=== PATIENT | male | born 2000 | race Caucasian/White ===

== ENCOUNTER 2023-04-07 16:34 | Emergency (ER) | payer OTHER, SELFPAY ==
[2023-04-07 16:34] VITALS: BP 136/90; PULSE 100; RESP 16; TEMP 36.1; O2SAT 95
--- NOTE | 2023-04-07 16:57 | ED.ANIMALBIT ---
HPI - Animal Bite General Chief Complaint: Animal Bite Stated Complaint: dog bite Time Seen by Provider: 04/07/23 16:52 Source: patient and family Mode of arrival: ambulatory Limitations: no limitations History of Present Illness HPI narrative: Pt presents to ER with dad due to dog bite in the left hand yesterday. It was a family dog. They went to [facility] yesterday and was discharged with antibiotics. Unclear if rabies treatment as initiated. As part of the history, MD attempted to elicit history regarding the dog's whereabouts. Patient immediately responded It's , gone, . MD attempted to confirm this information with dad at bedside but patient immediately started to become agitated, belligerent, and cursing at MD. I explained that the whereabouts of the dog is one of the most important pieces of information that I need that will guide treatment and I need accurate information. Also, I explained that I can not guarantee it is not rabies without knowing where the dog's exact where about is. Patient again became agitated, cursing with inappropriate language, repeatedly saying The dog is , it's and it's not rabies . MD attempted to call security to ensure patient's safety and he left AMA before treatment is complete. MD complaint: animal bite Onset (ago): day(s) Animal: dog Description of animal: household pet Mechanism: bite Location - Extremities: Left: hand Related Data Home Medications Medication Instructions Recorded Confirmed albuterol 90 mcg/actuation aerosol 90 mcg inhalation BID 04/07/23 04/07/23 inhaler Allergies Allergy/AdvReac Type Severity Reaction Status Date / Time No Known Allergies Allergy Verified 04/07/23 16:45 Review of Systems Constitutional: Constitutional: Reports as per HPI and Reports no additional constitutional complaints Eyes: Eyes: Reports as per HPI and Reports no additional eye complaints ENT: Reports system reviewed and no additional complaints, except as documented and Reports as per HPI Cardiovascular: Cardiovascular: Reports as per HPI and Reports no additional cardiovascular complaints Respiratory: Respiratory: Reports as per HPI and Reports no additional respiratory complaints Gastrointestinal: Gastrointestinal: Reports as per HPI and Reports no additional gastrointestinal complaints Genitourinary: Genitourinary: Reports as per HPI Musculoskeletal: Musculoskeletal: Reports no additional musculoskeletal complaints and Reports as per HPI Integumentary/Breasts: Skin/Breast: Reports system reviewed and no additional complaints, except as docu and Reports as per HPI Neurologic: Reports system reviewed and no additional complaints, except as documented and Reports as per HPI Psychiatric: Psychiatric: Reports no additional psychiatric complaints and Reports as per HPI Endocrine: Endocrine: Reports no additional endocrine complaints and Reports as per HPI Hematologic/Lymphatic: Hematologic/Lymphatic: Reports no additional hematologic/lymphatic complaints and Reports as per HPI Allergic/Immunologic: Allergic/Immunologic: Reports no additional allergic/immunologic complaints and Reports as per HPI Exam Narrative: Patient left before treatment is complete Course Vital Signs Vital signs: Vital Signs Temperature 97.0 F L 04/07/23 16:34 Pulse Rate 100 04/07/23 16:34 Respiratory Rate 16 04/07/23 16:34 Blood Pressure 136/90 04/07/23 16:34 Pulse Oximetry 95 04/07/23 16:34 Oxygen Delivery Room Air 04/07/23 16:34 Temperature 97.0 F L 04/07/23 16:34 Pulse Rate 100 04/07/23 16:34 Respiratory Rate 16 04/07/23 16:34 Blood Pressure 136/90 04/07/23 16:34 Pulse Oximetry 95 04/07/23 16:34 Oxygen Delivery Room Air 04/07/23 16:34 MDM - Animal Bite MDM Narrative Medical decision making narrative: Pt left before treatment is complete Differential Diagnosis Differential diagnosis: Likely bite by animal a
== END 2023-04-07 16:53 | disposition left against medical advice (07) ==
PROVIDERS: Emergency Provider Emergency Medicine
DX: S61.452A Open bite of left hand, initial encounter (principal); W54.0XXA Bitten by dog, initial encounter
CPT/HCPCS: 99281

== ENCOUNTER 2024-10-25 15:33 | Emergency (ER) | payer OTHER, SELFPAY ==
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
[2024-10-25 15:35] VITALS: BP 118/73; PULSE 99; RESP 18; TEMP 37.3; O2SAT 95
--- OUTSIDE RECORDS SUMMARY | 2024-10-25 15:36 | XMS_ITS | Encounter Summary ---
Author Organization 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
--- OUTSIDE RECORDS SUMMARY | 2024-10-25 15:36 | XMS_ITS | Encounter Summary ---
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
--- OUTSIDE RECORDS SUMMARY | 2024-10-25 15:36 | XMS_ITS | Clinical Summary ---
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 Gender Identity Not on file Sexual Orientation Not on file Last Filed Vital Signs Vital Sign Reading Time Taken Comments Blood Pressure - - Pulse - - Temperature - - Respiratory Rate - - Oxygen Saturation - - Inhaled Oxygen Concentration - - Weight 59 kg (130 lb) 03/01/2018 12:21 PM CDT Height 170.2 cm (5' 7 ) 03/01/2018 12:21 PM CDT Body Mass Index 20.36 03/01/2018 12:21 PM CDT Plan of Treatment Health Maintenance Due Date Last Done Comments Annual Physical 2001 HPV Vaccines (1 - Male 3-dos e series) 2013 Hepatitis C 2016 DTaP, Tdap and Td Vaccines ( 1 - Tdap) 2017 Hepatitis B Vaccines (1 of 3 - 19+ 3-dose series) 2017 COVID-19 Vaccine (2023-2 5 season) 2024 Meningococcal B Vaccine Aged Out No l onger eligible based on patient's age to complete this topic Meningococcal Vaccine Aged Out No grayson donald eligible based on patient's age to complete this topic Pneumococcal Vaccine: Pediat rics (0 to 5 Years) and At-Risk Patients (6 to 64 Years) Aged Out No longer eligible b ased on patient's age to complete this topic RSV Immunizations Under 20 Months Aged Out No longer eligible based on patient's age to complete this topic
--- OUTSIDE RECORDS SUMMARY | 2024-10-25 15:36 | XMS_ITS | Patient Health Record ---
Author Organization [facility] Address [address] [place] [address] Care Team Providers Care Varitype Operator Name Role Phone Provider No PCP Primary Care Provider Unavailabl e Boo Galicia Unavailable [phone] Friend/Family, x Unavailable Unavailable Allergies No Known Allergies Reason For Referral No Information Medications Medication SIG (Take, Route, Fr equency, Duration) Notes Start Date End Date Status ARIPiprazole 15 MG 1 tablet Orally each night at bedtime for mood for 30 days Act nuha ARIPiprazole 5 MG 1/2 or 1 tablet Oral ly noon each day as needed for mood for 30 days 03/08/2022 Active Problems Problem Type SNOMED Code ICD Code Onset Dates Problem Status W/U Status Risk Notes Problem 38223204 Attention defici t hyperactivity disorder (ADHD), combined type (F90.2) Active confirmed Problem 46340800 MADINA (generalized anxiety disorder) (F41.1) Active confirmed Problem 16574046 Mood disorder (F39) Active confirmed Problem 887396043 Insomnia, unspecified type (G47.00) Active confirmed Problem 57121361 Alcohol use disorder, mild, abuse (F10.10) Active confirmed Plan Of Treatment No Information Insurance Providers Payer Name Payer Address Payer Phone Subscriber Number Group Number Insured Name Patient Relationship to Insured Coverage Start Date Coverage End Date Cigna [address] DON[place] Anand [phone] [id number] Asael Antoine Child - Insured has Financial Responsibility Medical (General) History Medical History History ICD Code asthma Denies thyroid disease, seiz ure disorder, TBI, or significant liver/kidney disease. Surgical History Surgery Date(Month/Year) tonselectomy 2003 broken right hand Hospitalization History Reason Date(Month/Year) behavioral health three total times, the last in 2016 2010
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
--- OUTSIDE RECORDS SUMMARY | 2024-10-25 16:34 | XMS_ITS | Clinical Summary ---
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
--- OUTSIDE RECORDS SUMMARY | 2024-10-25 16:34 | XMS_ITS | Encounter Summary ---
Author Organization 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
--- OUTSIDE RECORDS SUMMARY | 2024-10-25 16:34 | XMS_ITS | Encounter Summary ---
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
[2024-10-25 17:19] LABS: Hematocrit 44.2 % (40.0-54.0); Hemoglobin 14.3 g/dL (14.0-18.0); Mean Corpuscular HGB Conc 32.4 g/dL (32-36); Mean Corpuscular Hemoglobin 29.6 pg (27.0-31.0); Mean Corpuscular Volume 91.5 fL (78.0-102.0); Mean Platelet Volume 9.5 fl (8.7-11.0); Platelet Count Result 281 K/mm3 (150-420); Red Blood Count 4.83 M/mm3 (4.70-6.10); Red Cell Distribution Width 12.5 % (11.6-14.4); White Blood Count 7.3 K/mm3 (4.8-10.8)
[2024-10-25 17:27] LABS: Partial Thromboplastin Time 26.6 Sec (23.9-30.70); Prothrombin Time 10.7 Seconds (9.50-12.1)
[2024-10-25 17:33] LABS: Alanine Aminotransferase 28 U/L (16-63); Albumin Level 3.4 g/dL (3.4-5.0); Alkaline Phosphatase 155 U/L (46-116); Anion Gap 8 mmol/L (4-12); Aspartate Amino Transferase 20 U/L (15-37); Bilirubin,Total 0.3 mg/dL (0.00-1.00); Blood Urea Nitrogen 7 mg/dL (7-18); Carbon Dioxide 28 mmol/L (21-32); Chloride 106 mmol/L (98-108); Estimated CRCL calculation 107 ml/min; Estimated Glomerular Filt Rate > 60; Glucose 109 mg/dL (70-99); Osmolality Calculated 293 mOsm/kg (285-295); Potassium 3.7 mmol/L (3.5-5.1); Sodium 142 mmol/L (136-145); Total Protein 7.1 g/dL (6.4-8.2)
--- NOTE | 2024-10-25 18:49 | PC.NURSE ---
On 10/25/24, the student, [marvin kumari ], provided care and completed [facility] documentation on this patient. I have reviewed the student's documentation and agree with the findings.
[2024-10-25 19:25] VITALS: BP 113/72; PULSE 85; RESP 18; TEMP 36.6; O2SAT 98
== END 2024-10-25 19:25 | disposition home or self-care (01) ==
PROVIDERS: Emergency Provider Emergency Medicine; PCP Physician Assistant
DX: S02.2XXA Fracture of nasal bones, initial encounter for closed fracture (principal); J32.9 Chronic sinusitis, unspecified; M54.9 Dorsalgia, unspecified; V28.09XA Other motorcycle driver injured in noncollision transport accident in nontraffic accident, initial encounter
CPT/HCPCS: 36415; 70450; 70486; 72125; 72128; 80053; 85027; 85610; 85730; 99284; L0150

== ENCOUNTER 2024-11-13 17:46 | Emergency (ER) | payer SELFPAY ==
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
[2024-11-13 17:46] VITALS: BP 128/73; PULSE 82; RESP 16; TEMP 36.5; O2SAT 98
--- OUTSIDE RECORDS SUMMARY | 2024-11-13 17:55 | XMS_ITS | Encounter Summary ---
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
--- OUTSIDE RECORDS SUMMARY | 2024-11-13 17:55 | XMS_ITS | Encounter Summary ---
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
--- OUTSIDE RECORDS SUMMARY | 2024-11-13 17:55 | XMS_ITS | Clinical Summary ---
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
[2024-11-13] MEDS: IBUPROFEN 600 MG TABLET PO (18:11)
--- OUTSIDE RECORDS SUMMARY | 2024-11-13 18:36 | XMS_ITS | Clinical Summary ---
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
--- OUTSIDE RECORDS SUMMARY | 2024-11-13 18:36 | XMS_ITS | Encounter Summary ---
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
--- OUTSIDE RECORDS SUMMARY | 2024-11-13 18:36 | XMS_ITS | Encounter Summary ---
Author Organization [facility] Address [address] [place] [address] Care Team Providers Care Business Controller Name Role Phone Unavailable Primary Care Provider Unavailabl e Encounter Details Date Type Department Care Team (Latest Contact Info) Description 05/21/[address] 

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
[2024-11-13 19:00] VITALS: BP 103/65; PULSE 63; RESP 20; TEMP 36.8; O2SAT 96
== END 2024-11-13 19:01 | disposition home or self-care (01) ==
PROVIDERS: Emergency Provider Emergency Medicine; PCP Physician Assistant
DX: S62.91XA Unspecified fracture of right hand, initial encounter for closed fracture (principal); Y04.0XXA Assault by unarmed brawl or fight, initial encounter
CPT/HCPCS: 29125; 73110; 73130; 99284; A9270